=== PATIENT | female | born 1930 | race Asian ===

== ENCOUNTER 2016-11-18 12:00 | Outpatient (RCR) | payer OTHER | END 2016-11-20 | disposition home or self-care (01) | LOC: PTY 12:00 | DX: R26.2 Difficulty in walking, not elsewhere classified (principal); R26.9 Unspecified abnormalities of gait and mobility; E11.69 Type 2 diabetes mellitus with other specified complication; M17.9 Osteoarthritis of knee, unspecified; M15.0 Primary generalized (osteo)arthritis; I10 Essential (primary) hypertension; Z91.81 History of falling ==

== ENCOUNTER 2016-11-26 12:15 | Outpatient (RCR) | payer OTHER | END 2016-12-20 | disposition home or self-care (01) | LOC: PTY 12:15 | DX: R26.9 Unspecified abnormalities of gait and mobility (principal); M17.9 Osteoarthritis of knee, unspecified ==

== ENCOUNTER 2016-12-30 13:45 | Outpatient (RCR) | payer OTHER | END 2017-01-20 | disposition home or self-care (01) | LOC: PTY 13:45 | DX: R26.9 Unspecified abnormalities of gait and mobility (principal); M17.9 Osteoarthritis of knee, unspecified ==

== ENCOUNTER 2017-01-27 14:00 | Outpatient (RCR) | payer OTHER | END 2017-02-19 | disposition home or self-care (01) | LOC: PTY 14:00 | DX: R26.9 Unspecified abnormalities of gait and mobility (principal); M17.9 Osteoarthritis of knee, unspecified ==

== ENCOUNTER 2017-03-03 14:00 | Outpatient (RCR) | payer OTHER | END 2017-03-22 | disposition home or self-care (01) | LOC: PTY 14:00 | DX: R26.9 Unspecified abnormalities of gait and mobility (principal); M17.9 Osteoarthritis of knee, unspecified ==

== ENCOUNTER 2017-03-31 13:30 | Outpatient (RCR) | payer OTHER | END 2017-04-22 | disposition home or self-care (01) | LOC: PTY 13:30 | DX: R26.9 Unspecified abnormalities of gait and mobility (principal); M17.9 Osteoarthritis of knee, unspecified ==